=== PATIENT | female | born 1975 | race Caucasian/White ===

== ENCOUNTER 2018-08-06 17:45 | Inpatient (IN) | payer OTHER ==
[~2018-08-06] VITALS: Ht 162.6 cm; Wt 80.3 kg
[2018-08-06 19:23] LABS: Basophils # (auto) 0 uL; Basophils % (auto) 0.3 % (0.0-2.0); Eosinophils # (auto) 0 uL; Hematocrit 42.1 % (36.0-46.0); Hemoglobin 14.4 g/dL (12.2-16.2); Lymphocytes # (auto) 1.1 uL; Lymphocytes % (auto) 12.1 % (10.0-50.0); Mean Corpuscular Hemoglobin 29.4 pg (28.0-32.0); Mean Corpuscular Hgb Conc. 34.1 g/dL (32.0-36.0); Mean Corpuscular Volume 86.1 fL (80.0-100.0); Monocytes # (auto) 0.8 uL; Monocytes % (auto) 9.3 % (0.0-12.0); Neutrophils # (auto) 7.1 uL; Neutrophils % (auto) 78.3 % (37.0-80.0); Nucleated Red Blood Cells % 0.1 %; Platelet Count (auto) 238 10^3/uL (140-450); Red Blood Cells 4.89 10^6/uL (4.0-5.20); Red Cell Distribution Width 12.9 % (11.8-14.3)
[2018-08-06 19:30] LABS: Albumin 3.6 g/dL (3.4-5.0); BUN/Creatinine Ratio 13.6; Calcium 8.9 mg/dL (8.5-10.1); Potassium 3.5 mmol/L (3.5-5.1)
[2018-08-06 19:41] LABS: Bilirubin, Total 0.9 mg/dL (0.2-1.0); Total Protein 8.5 g/dL (6.4-8.2)
[2018-08-07] MEDS ORDERED: MORPHINE SULFATE 4 MG/ML SYR/VIAL IV ONE ×2 (03:15→10:00)
[2018-08-07] MEDS ORDERED: ONDANSETRON HCL 4 MG/2 ML VIAL IV ONE ×2 (03:15→10:00)
[2018-08-07] MEDS ORDERED: cefTRIAXone 1GM/50ML D5W 50 ML IV ONE ×2 (03:44→03:45)
[2018-08-07] MEDS ORDERED: PROMETHAZINE HCL 25 MG/ML 1ML IV ONE (04:15)
[2018-08-07] MEDS ORDERED: HYDROmorphone HCL 2 MG/ML VL IV ONE (04:15)
[2018-08-07 06:03] LABS: Urine Amorphous Crystal FEW /hpf (None Seen); Urine Bacteria FEW /hpf (None Seen); Urine Blood TRACE /uL (Negative); Urine Specific Gravity 1.006 (1.001-1.035); Urine WBC 2 /hpf (0 - 5)
[2018-08-07 06:05] LABS: Urine Pregnacy Test Negative (Negative)
[2018-08-07 06:12] LABS: Alcohol, Urine < 3.0 mg/dL (0-5); Amphetamine Screen, Urine NEGATIVE (NEGATIVE); Barbiturate Scree,Urine NEGATIVE (NEGATIVE); Benzodiazephine Screen, Urine NEGATIVE (NEGATIVE); Cannabinoid Screen, Urine NEGATIVE (NEGATIVE); Cocaine Screen, Urine NEGATIVE (NEGATIVE); Opiate Scree,Urine POSITIVE (NEGATIVE); Phencyclidine Screen, Urine NEGATIVE (NEGATIVE)
[2018-08-07] MEDS ORDERED: SODIUM CHLORIDE 0.9% 1,000 ML IV ONE (10:00)
[2018-08-07] MEDS ORDERED: ACETAMINOPHEN 500 MG TAB PO PRN (10:00)
[2018-08-07] MEDS ORDERED: MORPHINE SULF INJ 2 MG/ML SYRINGE 1ML IV PRN (10:00)
[2018-08-07] MEDS ORDERED: ONDANSETRON HCL 4 MG/2 ML VIAL IV PRN (10:00)
[2018-08-07] MEDS ORDERED: KETOROLAC TROMETH 30 MG/ML 1ML VIAL IV ONE (10:00)
[2018-08-07] MEDS: SODIUM CHLORIDE 0.9% 1,000 ML IV SCH ×2 (10:20→17:59)
[2018-08-07] MEDS: PANTOPRAZOLE 40 MG/10 ML VIAL IV SCH (10:22)
[2018-08-07 16:47] VITALS: BP 138/66
[2018-08-07] MEDS: HYDROmorphone HCL 2 MG/ML VL IV PRN ×2 (17:12→21:25)
[2018-08-07 17:33] VITALS: BP 114/72
[2018-08-07] MEDS ORDERED: HYDR-4683 GT (18:43)
[2018-08-07] MEDS ORDERED: GABA300C10 PO (18:43)
[2018-08-07 21:42] VITALS: BP 104/75
[2018-08-08] MEDS: HYDROmorphone HCL 2 MG/ML VL IV PRN ×6 (01:30→22:38)
[2018-08-08] MEDS: ONDANSETRON HCL 4 MG/2 ML VIAL IV PRN ×6 (01:30→22:37)
[2018-08-08] MEDS: SODIUM CHLORIDE 0.9% 1,000 ML IV SCH ×3 (01:59→18:20)
[2018-08-08 04:57] VITALS: BP 114/67
[2018-08-08 05:44] LABS: Basophils # (auto) 0 uL; Basophils % (auto) 0.3 % (0.0-2.0); Eosinophils # (auto) 0 uL; Eosinophils % (auto) 0.1 % (0.0-7.0); Hematocrit 34.5 % (36.0-46.0); Hemoglobin 11.9 g/dL (12.2-16.2); Lymphocytes # (auto) 1.3 uL; Lymphocytes % (auto) 18.3 % (10.0-50.0); Mean Corpuscular Hemoglobin 29.3 pg (28.0-32.0); Mean Corpuscular Hgb Conc. 34.5 g/dL (32.0-36.0); Mean Corpuscular Volume 84.9 fL (80.0-100.0); Monocytes # (auto) 0.9 uL; Monocytes % (auto) 12.5 % (0.0-12.0); Neutrophils # (auto) 4.9 uL; Neutrophils % (auto) 68.8 % (37.0-80.0); Nucleated Red Blood Cells % 0.1 %; Platelet Count (auto) 234 10^3/uL (140-450); Red Blood Cells 4.06 10^6/uL (4.0-5.20); Red Cell Distribution Width 13.2 % (11.8-14.3); White Blood Cell 7.2 10^3/uL (4.4-10.8)
[2018-08-08 06:32] LABS: BUN/Creatinine Ratio 16.7; Calcium 7.9 mg/dL (8.5-10.1)
--- NOTE | 2018-08-08 07:08 | NUR ---
Shift Note The patient had an uneventful night, only issue was pain management. The patient received her pain meds seemingly around the clock. She would wake from sleep just in time for her pain meds. Her right flank is very tender to touch. Will continue to monitor.
[2018-08-08 09:00] VITALS: BP 120/78
[2018-08-08] MEDS: cefTRIAXone 1GM/50ML D5W 50 ML IV SCH (09:23)
[2018-08-08] MEDS: PANTOPRAZOLE 40 MG/10 ML VIAL IV SCH (09:30)
[2018-08-08] MEDS ORDERED: VANCOMYCIN PER PHARMACY 0 MG IV SCH (11:30)
[2018-08-08] MEDS: VANCOMYCIN 1GM/250ML 250 ML IV SCH (12:45)
[2018-08-08 13:00] VITALS: BP 111/68
[2018-08-08 17:28] VITALS: BP 106/50
[2018-08-08 22:00] VITALS: BP 113/66
[2018-08-09] MEDS: VANCOMYCIN 1GM/250ML 250 ML IV SCH (01:56)
[2018-08-09] MEDS: HYDROmorphone HCL 2 MG/ML VL IV PRN ×5 (02:35→19:53)
[2018-08-09] MEDS: ONDANSETRON HCL 4 MG/2 ML VIAL IV PRN ×5 (02:35→19:47)
[2018-08-09] MEDS: SODIUM CHLORIDE 0.9% 1,000 ML IV SCH ×3 (03:01→13:20)
[2018-08-09 05:00] VITALS: BP 101/63
[2018-08-09 06:30] LABS: Basophils # (auto) 0 uL; Basophils % (auto) 0.3 % (0.0-2.0); Eosinophils # (auto) 0 uL; Eosinophils % (auto) 0.3 % (0.0-7.0); Hematocrit 34.1 % (36.0-46.0); Hemoglobin 11.7 g/dL (12.2-16.2); Lymphocytes # (auto) 1.2 uL; Lymphocytes % (auto) 16.1 % (10.0-50.0); Mean Corpuscular Hemoglobin 29.1 pg (28.0-32.0); Mean Corpuscular Hgb Conc. 34.3 g/dL (32.0-36.0); Mean Corpuscular Volume 84.8 fL (80.0-100.0); Monocytes # (auto) 0.8 uL; Monocytes % (auto) 10.9 % (0.0-12.0); Neutrophils # (auto) 5.5 uL; Neutrophils % (auto) 72.4 % (37.0-80.0); Nucleated Red Blood Cells % 0.1 %; Platelet Count (auto) 271 10^3/uL (140-450); Red Blood Cells 4.02 10^6/uL (4.0-5.20); Red Cell Distribution Width 13.2 % (11.8-14.3); White Blood Cell 7.6 10^3/uL (4.4-10.8)
[2018-08-09 06:57] LABS: Albumin 2.8 g/dL (3.4-5.0); BUN/Creatinine Ratio 5.9; Calcium 7.7 mg/dL (8.5-10.1)
[2018-08-09 07:00] LABS: Bilirubin, Total 0.7 mg/dL (0.2-1.0)
[2018-08-09 07:01] LABS: Total Protein 6.6 g/dL (6.4-8.2)
--- NOTE | 2018-08-09 07:05 | NUR ---
Shift Note The patient had an uneventful night, pain management is still an issue. The patient received her pain meds around the clock, even waking to request it. Her right flank continues to be very tender to touch. Will continue to monitor.
--- NOTE | 2018-08-09 07:45 | NUR ---
OPENING NOTE OBSERVED PT RESTING IN BED. EYES ARE CLOSED, EVEN RISE AND FALL OF CHEST. FALL PRECAUTIONS IN PLACE. CALL LIGHT WITHIN REACH. WILL CONTINUE TO MONITOR Q1H AND PRN. CONTINUE PT CARE.
[2018-08-09 08:00] VITALS: BP 103/57
[2018-08-09] MEDS: PROMETHAZINE HCL 25 MG/ML 1ML IV PRN (09:32)
[2018-08-09] MEDS: PANTOPRAZOLE 40 MG/10 ML VIAL IV SCH (09:32)
[2018-08-09] MEDS: cefTRIAXone 1GM/50ML D5W 50 ML IV SCH (09:32)
--- NOTE | 2018-08-09 11:52 | NUR ---
HYPOKALEMIA SPOKE TO DR. MANLEY REGARDING K 3.0. ORDERS RECEIVED.
[2018-08-09 12:00] VITALS: BP 95/65
[2018-08-09] MEDS ORDERED: POTASSIUM CHL 20 Meq TABLET PO ONE (12:00)
[2018-08-09] MEDS: VANCOMYCIN 1,250 MG in D5W 5% 250 ML IV SCH (12:30)
--- NOTE | 2018-08-09 12:30 | NUR ---
POTASSIUM SUPPLEMENT PATIENT ABLE TO TOLERATE 1 1/2 TABLET OF POTASSIUM. STATING SHE IS UNABLE TO SWALLOW THE REST. WILL INFORM MD.
--- NOTE | 2018-08-09 12:54 | NUR ---
LIVER ULTRASOUND RECEIVED PHONE CALL FROM US REGARDING PENDING LIVER US. PT TO BE NPO, WATER OK, FOR PROCEDURE. IMAGING TO BE COMPLETED AROUND 1999. PT AWARE.
--- NOTE | 2018-08-09 14:04 | NUR ---
NUTRITION ASSESSMENT NOTES Please refer to link notes of nutrition screen form filed under the intervention section of the plan of care for further details. Est. Needs: 1550 kcal to 1950 kcal (20-25 kcal/kgBW), 62 gms to 78 gms pro (0.8-1.0 gms/kgBW). Will continue to monitor pertinent labs and reassess nutrient need prn Thank you. Addendum: 08/09/18 at [address] Amended: Links added.
--- NOTE | 2018-08-09 14:15 | NUR ---
PAGED DR. MANLEY PAGED REGARDING POTASSIUM ADMINISTRATION. WAITING VIDEO EDITOR BACK.
--- NOTE | 2018-08-09 14:35 | NUR ---
MD RETURNED PAGE SPOKE TO DR. MANLEY REGARDING PATIENTS INABILITY TO FINISH REMAINDER OF POTASSIUM DOSE. ORDERS RECEIVED AND READ BACK.
[2018-08-09] MEDS ORDERED: POTASSIUM EFFERVESENT TAB 25 MEQ PO ONE (14:45)
[2018-08-09 17:00] VITALS: BP 103/62
[2018-08-09 21:43] VITALS: BP 108/66
[2018-08-10] MEDS: HYDROmorphone HCL 2 MG/ML VL IV PRN ×6 (00:17→21:45)
[2018-08-10] MEDS: PROMETHAZINE HCL 25 MG/ML 1ML IV PRN ×4 (00:17→21:42)
[2018-08-10] MEDS: VANCOMYCIN 1,250 MG in D5W 5% 250 ML IV SCH ×2 (00:24→15:25)
[2018-08-10] MEDS: SODIUM CHLORIDE 0.9% 1,000 ML IV SCH ×3 (02:20→19:55)
[2018-08-10 05:15] VITALS: BP 93/60
[2018-08-10 07:45] LABS: Albumin 2.7 g/dL (3.4-5.0); Calcium 7.7 mg/dL (8.5-10.1); Magnesium 2.3 mg/dL (1.6-2.6); Potassium 3.3 mmol/L (3.5-5.1)
[2018-08-10 07:49] LABS: Total Protein 6.7 g/dL (6.4-8.2)
[2018-08-10 08:00] VITALS: BP 97/56
[2018-08-10] MEDS: ONDANSETRON HCL 4 MG/2 ML VIAL IV PRN ×2 (08:53→13:03)
[2018-08-10] MEDS: cefTRIAXone 1GM/50ML D5W 50 ML IV SCH (08:54)
[2018-08-10] MEDS: PANTOPRAZOLE 40 MG/10 ML VIAL IV SCH (09:48)
[2018-08-10 12:00] VITALS: BP 103/63
--- NOTE | 2018-08-10 13:07 | NUR ---
Dr Jiménez at bedside. New orders received for NS IV 1000ml over 2 hrs once, Change NS IVF to 150 mL/hr, K+25 mEQ PO X1, and Toradol 30 mg IV Q6hP. Will continue to monitor.
--- NOTE | 2018-08-10 13:14 | NUR ---
chaperoned Dr. Jiménez into pts room
[2018-08-10] MEDS ORDERED: SODIUM CHLORIDE 0.9% 1,000 ML IV ONE (13:15)
[2018-08-10] MEDS ORDERED: POTASSIUM EFFERVESENT TAB 25 MEQ PO ONE (13:30)
--- NOTE | 2018-08-10 15:27 | NUR ---
Pharmacist made aware that Vanco was started late due to NS IVF bolus to be given over 2 hrs.
[2018-08-10 16:00] VITALS: BP 110/63
--- NOTE | 2018-08-10 19:21 | NUR ---
Patient care and report handed off to Arthur WHITMAN.
[2018-08-10 21:48] VITALS: BP 92/52
[2018-08-10] MEDS: KETOROLAC TROMETH 30 MG/ML 1ML VIAL IV PRN (23:00)
[2018-08-11] MEDS: HYDROmorphone HCL 2 MG/ML VL IV PRN ×2 (01:56→06:26)
[2018-08-11] MEDS: ONDANSETRON HCL 4 MG/2 ML VIAL IV PRN ×3 (01:57→22:37)
[2018-08-11] MEDS: VANCOMYCIN 1,250 MG in D5W 5% 250 ML IV SCH ×2 (02:08→13:00)
--- NOTE | 2018-08-11 02:12 | NUR ---
Vanc Late Started the 0100hr Vancomycin dose late due to the Vanc trough being drawn late. It was drawn after 0100hrs and not resulted until 0205hrs. Will Notify the pharmacy of the late start.
[2018-08-11] MEDS: SODIUM CHLORIDE 0.9% 1,000 ML IV SCH ×4 (02:35→22:35)
[2018-08-11 05:12] VITALS: BP 96/67
[2018-08-11] MEDS: KETOROLAC TROMETH 30 MG/ML 1ML VIAL IV PRN ×5 (05:23→22:37)
[2018-08-11] MEDS: PROMETHAZINE HCL 25 MG/ML 1ML IV PRN ×3 (06:27→18:41)
--- NOTE | 2018-08-11 07:55 | NUR ---
Opening Shift Note Assumed care of patient, awake and alert and oriented. Patient laying in bed resting with eyes closed. No S/S of distress/SOB or pain noted. Instructed on POC and to call for assist PRN, will continue to monitor for changes.
--- NOTE | 2018-08-11 08:20 | NUR ---
Dr Jiménez at bedside.
[2018-08-11 09:00] VITALS: BP 94/62
[2018-08-11] MEDS: PANTOPRAZOLE 40 MG/10 ML VIAL IV SCH (09:48)
[2018-08-11] MEDS: cefTRIAXone 1GM/50ML D5W 50 ML IV SCH (09:48)
[2018-08-11] MEDS: HYDROcodone-ACET 5/325MG TAB PO PRN ×2 (11:07→17:34)
[2018-08-11 12:10] LABS: Calcium 8.1 mg/dL (8.5-10.1); Potassium 3.4 mmol/L (3.5-5.1)
[2018-08-11 12:13] LABS: BUN/Creatinine Ratio 12.2
--- NOTE | 2018-08-11 12:34 | NUR ---
Dr Jiménez paged and made aware of K+3.4, new order received for K+ 25 mEQ effervescent PO once. Will continue to monitor.
[2018-08-11] MEDS ORDERED: POTASSIUM EFFERVESENT TAB 25 MEQ PO ONE (12:45)
[2018-08-11 12:49] VITALS: BP 113/70
--- NOTE | 2018-08-11 15:20 | NUR ---
Nutrition Follow-up Notes Wt.: 78.5 KG pt was sleeping with no family by bedside. per records pt with acute pyelonephritis on pain meds. pt with no distress noted per nursing. pt is currently on clear liq diet with inadequate PO of 50% x 6 per RN doc Est. Needs: 1550 kcal to 1950 kcal (20-25 kcal/kgBW), 62 gms to 78 gms pro (0.8-1.0 gms/kgBW). Will continue to monitor pertinent labs and reassess nutrient need prn Labs: CA 7.7 L, ALB 2.7 L. Skin: Eloy scale 19 low risk skin intact per RN doc GI: Pt has no BM reported per master glazier. PES: Altered nutrition related lab values r/t current/chronic medical condition aeb hyperglycemia,hypokalemia, low renal labs,elev. LFTs, hypocalcemia and mod hypoalbuminemia Increased nutrient needs r/t current medical condition aeb Renal colic on left side,Renal calculi,Pyelonephritis,Hyponatremia, mo hypoalbuminemia, on Clear Liquid diet Will continue to monitor PO intake, skin status, pertinent labs and weight trend. F/u in 2 to 3 days. Rec.: 1.) Advance gradually oral diet (Soft Low Fat diet) when medically appropriate. 2.) If Albumin level continues trending down, consider Prostat 1 pkt BID. 3.) Continue close supervision with meals 4.) Refer to RD for further nutrition education and weight monitoring upon discharged. 5.) Continue current plan of care.
[2018-08-11 16:38] VITALS: BP 107/64
--- NOTE | 2018-08-11 19:05 | NUR ---
Patient care and report handed off to Haydee WHITMAN.
[2018-08-11 20:00] VITALS: BP 114/65
--- NOTE | 2018-08-11 20:05 | NUR ---
Opening Shift Note Assumed care of patient, awake and alert. No S/S of distress/SOB or pain. Instructed on POC and to call for assist PRN, will continue to monitor for changes Q1hr and PRN.Patient said she ate sandwitch from home, told that her diet is clear liquid.
[2018-08-11] MEDS: VANCOMYCIN 1GM/250ML 250 ML IV SCH (21:12)
[2018-08-12] MEDS: HYDROcodone-ACET 5/325MG TAB PO PRN ×2 (00:29→09:14)
[2018-08-12] MEDS: PROMETHAZINE HCL 25 MG/ML 1ML IV PRN ×2 (00:29→09:14)
[2018-08-12] MEDS: KETOROLAC TROMETH 30 MG/ML 1ML VIAL IV PRN ×3 (02:48→13:07)
[2018-08-12] MEDS: ONDANSETRON HCL 4 MG/2 ML VIAL IV PRN ×3 (02:48→13:07)
[2018-08-12] MEDS: VANCOMYCIN 1GM/250ML 250 ML IV SCH ×2 (04:35→13:00)
[2018-08-12 05:00] VITALS: BP 104/66
[2018-08-12] MEDS: SODIUM CHLORIDE 0.9% 1,000 ML IV SCH ×2 (05:15→09:25)
--- NOTE | 2018-08-12 07:21 | NUR ---
Report given to Michael Jimenez to assume care, patient is resting no distress.
--- NOTE | 2018-08-12 07:25 | NUR ---
Opening Shift Note Assumed care of patient, awake and alert. No S/S of distress/SOB or pain. Instructed on POC-continue IV antibiotics, patient informed to call for assist PRN, will continue to monitor for changes Q1hr and PRN.
[2018-08-12] MEDS: cefTRIAXone 1GM/50ML D5W 50 ML IV SCH (09:15)
[2018-08-12] MEDS: PANTOPRAZOLE 40 MG/10 ML VIAL IV SCH (09:15)
[2018-08-12 09:28] VITALS: BP 124/61
[2018-08-12 12:30] VITALS: BP 102/57
[2018-08-12 13:54] VITALS: BP 102/57
--- NOTE | 2018-08-12 15:45 | NUR ---
Discharge Discharge instructions given as ordered. Encourage to follow up with Primary MD as instructed. All questions and concerns addressed. Patient verbalized understanding. Patient refused the flu and pneumonia vaccines. IV removed with catheter intact, pressure dressing applied. Patient refused to be taken to vehicle via wheelchair. She went with all personal belongings, accompanied by family member. No distress noted at time of departure.
== END 2018-08-12 15:45 | disposition home or self-care (01) | DRG 872 ==
LOC: ER 17:50 → OVERFLOW 08-07 10:02 → EAST 08-07 16:31
PROVIDERS: ADMIT Nurse Practitioner Acute Care; ATTEND Family Medicine
DX: A41.9 Sepsis, unspecified organism (principal); E87.1 Hypo-osmolality and hyponatremia; N10 Acute pyelonephritis; D63.8 Anemia in other chronic diseases classified elsewhere; E86.0 Dehydration; N20.0 Calculus of kidney; E87.6 Hypokalemia; Z87.440 Personal history of urinary (tract) infections; Z87.442 Personal history of urinary calculi
CPT/HCPCS: 36415; 74176; 76705; 76775; 80048; 80053; 80202; 80307; 81001; 81025; 83605; 83690; 83735; 85025; 87040; 87086; 96361; 96365; 96375; 96376; C9113; G0378; J0696; J1885; J2405; J7060

== ENCOUNTER 2021-03-11 09:41 | Emergency (ER) | payer MEDICAID, OTHER ==
[~2021-03-11] VITALS: Ht 167.6 cm; Wt 68.0 kg
[~2021-03-11 09:41] MED LIST: GABA300C10 PO; HYDR-4833 GT
[2021-03-11 09:48] VITALS: BP 111/73
[2021-03-11 10:15] LABS: Urine Bacteria FEW /hpf (None Seen); Urine Blood Negative /uL (Negative); Urine Mucus FEW (None Seen); Urine Specific Gravity 1.018 (1.001-1.035); Urine WBC 42 /hpf (0 - 5)
[2021-03-11 10:30] LABS: Basophils # (auto) 0.1 10 ^3/uL (0-0.2); Eosinophils # (auto) 0 10 ^3/uL (0-0.8); Lymphocytes # (auto) 2.1 10 ^3/uL (0.4-5.4); Monocytes # (auto) 0.5 10 ^3/uL (0-1.3); Neutrophils % (auto) 74.4 % (37.0-80.0)
[2021-03-11 10:33] LABS: Basophils % (auto) 0.5 % (0.0-2.0); Eosinophils % (auto) 0.3 % (0.0-7.0); Hematocrit 36.4 % (36.0-46.0); Hemoglobin 11.8 g/dL (12.2-16.2); Lymphocytes % (auto) 20.2 % (10.0-50.0); Mean Corpuscular Hemoglobin 24.7 pg (28.0-32.0); Mean Corpuscular Hgb Conc. 32.3 g/dL (32.0-36.0); Mean Corpuscular Volume 76.5 fL (80.0-100.0); Monocytes % (auto) 4.6 % (0.0-12.0); Neutrophils # (auto) 7.9 10 ^3/uL (1.6-8.6); Red Blood Cells 4.76 10^6/uL (4.0-5.20); Red Cell Distribution Width 14.8 % (11.8-14.3); White Blood Cell 10.6 10^3/uL (4.4-10.8)
[2021-03-11 10:54] LABS: Calcium 8.7 mg/dL (8.5-10.1); Potassium 3.8 mmol/L (3.5-5.1)
[2021-03-11 10:59] LABS: Albumin 4.3 g/dL (3.4-5.0); BUN/Creatinine Ratio 17.1; Bilirubin, Total 0.6 mg/dL (0.2-1.0); Total Protein 7.8 g/dL (6.4-8.2)
[2021-03-11] MEDS ORDERED: ONDANSETRON ODT 4 MG TAB PO ONE (14:30)
[2021-03-11] MEDS ORDERED: ONDANSETRON HCL 4 MG/2 ML VIAL IV ONE (15:15)
[2021-03-11] MEDS ORDERED: PROMETHAZINE HCL 25 MG/ML 1ML IV ONE ×2 (15:15→17:45)
[2021-03-11] MEDS ORDERED: KETOROLAC TROMETH 30 MG/ML 1ML VIAL IV ONE (15:15)
[2021-03-11] MEDS ORDERED: SODIUM CHLORIDE 0.9% 1,000 ML IVB ONE (15:15)
[2021-03-11] MEDS ORDERED: HYDROmorphone HCL 2 MG/ML VL IV ONE ×2 (15:15→17:45)
== END 2021-03-11 21:25 | disposition home or self-care (01) ==
LOC: ER 09:41
DX: N20.1 Calculus of ureter (principal); N20.0 Calculus of kidney; N39.0 Urinary tract infection, site not specified; Z79.899 Other long term (current) drug therapy
CPT/HCPCS: 36415; 74176; 80053; 81001; 85025; 96361; 96374; 96375; 96376; 99284; J1170; J1885; J2550; Q0162